=== PATIENT | female | born 1985 | race American Indian/Alaskan Native ===

== ENCOUNTER 2022-03-18 11:53 | Emergency (ER) | payer MEDICAID ==
[2022-03-18 12:40] VITALS: BP 136/81
--- NOTE | 2022-03-18 13:45 | XRay Report ---
CHEST 2 VIEWS INDICATION: chest pain. COMPARISON: None. FINDINGS: Support devices: None. Heart: Within normal limits. Lungs/Pleura: No acute air space or interstitial disease. No significant pleural effusion. IMPRESSION: No acute findings. Signer Name: Beny Romero MD Signed: 03/18/2022 1:41 PM Workstation Name: [id number]
--- NOTE | 2022-03-18 14:20 | Emergency Department Report ---
ED General Adult HPI - General Chief complaint: Medical Clearance Stated complaint: MOLD TEST Time Seen by Provider: 03/18/22 13:48 Source: patient Mode of arrival: Ambulatory Limitations: No Limitations - History of Present Illness Initial comments: 37-year-old black female with no past medical history presents to the emergency department for mold testing. She states that she recently found significant amount of mold at her apartment, and her fur weigher told her to follow-up in the emergency department for mold testing. She states that she has had some intermittent chest tightness and shortness of breath. She denies symptoms at this time. She denies fever, nausea, vomiting, dizziness, and diaphoresis. Complaint: sob -: Gradual, days(s) Severity scale (0 -10): 0 Associated Symptoms: chest pain, shortness of breath Treatments Prior to Arrival: none - Related Data Allergies Allergy/AdvReac Type Severity Reaction Status Date / Time No Known Allergies Allergy Verified 03/18/22 12:40 ED Review of Systems ROS: Stated complaint: MOLD TEST Other details as noted in HPI Comment: All other systems reviewed and negative Constitutional: denies: chills, fever Respiratory: shortness of breath Cardiovascular: chest pain. denies: palpitations Gastrointestinal: denies: abdominal pain, nausea, vomiting Musculoskeletal: denies: back pain Neurological: denies: headache Psychiatric: denies: anxiety ED Past Medical Hx - Past Medical History Previous Medical History?: No ED Physical Exam - General Limitations: No Limitations General appearance: alert, in no apparent distress - Head Head exam: Present: atraumatic, normocephalic - Eye Eye exam: Present: normal appearance. Absent: conjunctival injection - ENT ENT exam: Present: normal exam - Neck Neck exam: Present: normal inspection, full ROM. Absent: tenderness, lymphadenopathy - Respiratory Respiratory exam: Present: normal lung sounds bilaterally. Absent: respiratory distress, wheezes, rales, rhonchi, stridor, chest wall tenderness - Cardiovascular Cardiovascular Exam: Present: regular rate, normal heart sounds - GI/Abdominal GI/Abdominal exam: Present: soft, normal bowel sounds. Absent: distended, tenderness - Extremities Exam Extremities exam: Present: normal inspection, full ROM, normal capillary refill. Absent: tenderness, pedal edema, joint swelling, calf tenderness - Back Exam Back exam: Present: normal inspection. Absent: CVA tenderness (R), CVA tenderness (L) - Neurological Exam Neurological exam: Present: alert, oriented X3, CN II-XII intact, normal gait - Psychiatric Psychiatric exam: Present: normal affect, normal mood - Skin Skin exam: Present: warm, dry, intact, normal color ED Course Vital Signs 03/18/22 12:38 Temperature 98.5 F Pulse Rate 88 Respiratory 14 Rate Blood Pressure 136/81 O2 Sat by Pulse 99 Oximetry ED Medical Decision Making - Radiology Data Radiology results: report reviewed, image reviewed Chest x-ray: FINDINGS: Support devices: None. Heart: Within normal limits. Lungs/Pleura: No acute air space or interstitial disease. No significant pleural effusion. IMPRESSION: No acute findings. - Medical Decision Making 6-year-old black male with no past medical history presents to the emergency department with the mother for evaluation of shortness of breath. Mother states that she recently found mold throughout her apartment and her fur weigher told her to come in for mold testing. She states that for the last couple days patient seems like he has been breathing harder than normal. She denies fever, cough, or congestion. Physical exam and workup unremarkable. Patient advised to follow up in Toxicology clinic at [facility] for further evaluation and management and return to ed as needed. She verbalized understanding of and agreement with plan of care. Critical care attestation.: If time is entered above; I have spent that time in minutes in the direct care of this critically ill patient, excluding procedure time. ED Disposition Clinical Impression: Shortness of breath, History of chest pain Disposition: HOME / SELF CARE / HOMELESS Is pt being admited?: No Does the pt Need Aspirin: No Condition: Stable Instructions: Shortness of Breath, Adult, [id number], Nonspecific Chest Pain, Adult, [id number] Additional Instructions: Follow-up at toxicology clinic at [facility]. Return to the emergency department as needed. Referrals: titi booker [Other] - 3-5 Days Forms: Work/School Release Form(ED) Time of Disposition: 14:20
== END 2022-03-18 15:06 | disposition home or self-care (01) ==
LOC: ED 11:53
DX: R06.02 Shortness of breath (principal); R07.89 Other chest pain; Z79.899 Other long term (current) drug therapy
CPT/HCPCS: 71046; 99283